=== PATIENT | female | born 1970 | race Caucasian/White ===

== ENCOUNTER → 2024-01-06 08:39 | Outpatient (REF) | payer BC, SELFPAY | LOC: WDC 08:39 | PROVIDERS: ATTENDING PHYSICIAN Obstetrics & Gynecology; FAMILY PHYSICIAN Family Medicine | DX: Z12.31 Encounter for screening mammogram for malignant neoplasm of breast (principal) | CPT/HCPCS: 77063; 77067 ==

== ENCOUNTER → 2024-11-05 14:10 | Outpatient (REF) | payer BC, SELFPAY | LOC: HWRAD 14:10 | PROVIDERS: ATTENDING PHYSICIAN Otolaryngology; FAMILY PHYSICIAN Family Medicine | DX: J32.0 Chronic maxillary sinusitis (principal) | CPT/HCPCS: 70486 ==

== ENCOUNTER → 2025-01-10 10:57 | Outpatient (REF) | payer BC, SELFPAY | LOC: WDC 10:57 | PROVIDERS: ATTENDING PHYSICIAN Obstetrics & Gynecology; FAMILY PHYSICIAN Family Medicine | DX: Z12.31 Encounter for screening mammogram for malignant neoplasm of breast (principal) | CPT/HCPCS: 77063; 77067 ==

== ENCOUNTER 2025-02-26 19:19 | Emergency (ER) | payer BC, SELFPAY ==
[2025-02-26 19:20] VITALS: BP 147/93
[2025-02-26 19:42] LABS: Urine Character Clear (Clear)
[2025-02-26 19:48] LABS: Hematocrit 40.3 % (37.0-47.0); Hemoglobin 13.4 g/dL (12.0-16.0); Mean Corp Hgb Conc. 33.3 g/dL (33.0-37.0); Mean Corpuscular Volume 86.7 fL (81.0-99.0); Platelet Count 248 10^3/uL (130-400); Red Cell Dist. Width 12.6 % (11.5-14.5)
[2025-02-26 19:51] LABS: HCG, Serum Qualitative Screen Negative
[2025-02-26 19:54] LABS: Urine Red Blood Cell 0-2 /HPF (0-2)
[2025-02-26 19:55] LABS: ALT (SGPT) 24 U/L (0-35); AST (SGOT) 25 U/L (14-36); Albumin 4.9 g/dl (3.5-5.0); Alkaline Phosphatase 59 U/L (38-126); Blood Urea Nitrogen 17 mg/dl (7-17); Calcium 10.0 mg/dl (8.4-10.2); Carbon Dioxide 23 mmol/L (22-30); Chloride 107 mmol/L (98-107); Glucose 89 mg/dl (70-99); Lipase 156 U/L (23-300); Potassium 3.8 mmol/L (3.5-5.1); Sodium 139 mmol/L (135-145); Total Protein 7.7 g/dl (6.3-8.2); eGFR > 60.00
[2025-02-26 20:13] LABS: Nucleated Red Blood Cells % 0 %
[2025-02-26 21:21] VITALS: BP 126/82; BMI 28.9
--- NOTE | 2025-02-26 22:34 | ED.GENMED ---
History of Present Illness
General
Chief Complaint: Abdominal Pain
Source: patient
Exam Limitations: none
Time Seen by Provider: 02/26/25 21:22
Nursing documentation reviewed up to this point in time: agreed with
History of Present Illness
History of Present Illness:
Patient is a 54-year-old female who presents to the ER complaining of left-sided abdominal pain. She reports she has had pain for the past several days. She has nauseous with this. She does feel some pressure in her suprapubic region. She denies
any burning with urination. She had diarrhea when this started several days ago. She is on Zepbound however has had more of an indigestion with that and not similar symptoms.
She denies any injury but does report she has been doing a lot of heavy front squats with weights/barbell.
She denies any back pain or numbness [place] weakness to lower extremities denies any bowel bladder incontinence. She denies any constipation
Past History
Past History
ED Past Medical History: Asthma
ED Past Surgical History: Other (Breast reduction surgery October 2014)
Social History
Tobacco: Non-smoker
Personal:
Living: with family
Employment: Employed
Phy Exam
General Physical Exam
General Presentation: no apparent distress
General age: appears stated age
General Skin: warm and dry
General Habitus: normal
General Mental: alert
General Hydration: appears well hydrated
Gastrointestinal Exam
Gastrointestinal Exam: soft and other (tender llq )
Neurological Exam
Neurological Exam: alert and oriented x3
Musculoskeletal Exam
Musculoskeletal Exam: full ROM
Skin Exam
Skin Exam: normal color and warm/dry
Psychiatric Exam
Psychiatric Exam: normal mood/affect
Course
Orders/Labs/Results
Orders:
Orders
02/26/25 19:25
Test Result ONCE
02/26/25 19:34
Complete Blood Count/With Diff Urgent
Comprehensive Metabolic Panel Urgent
HCG, Serum Qualitative Screen Urgent
Lipase Urgent
Urinalysis Reflex To Culture Urgent
Date Specimen was Collected: 02/26/25
Time Specimen was Collected: :25
Urine Microscopic Reflex Cult Urgent
Urine Culture Urgent
ALHAJI Source: U
Specimen Description:
Date Specimen was Collected: 02/26/25
Time Specimen was Collected: :
02/26/25 22:41
0.9% Sodium Chloride 1000 ml [Nss] 1,000 ml IV BOLUS
Ketorolac [Toradol] 15 mg IV NOW STA
Ondansetron Injectable [Zofran] 4 mg IV NOW STA
02/27/25 00:23
CT Abd/pelvis W Iv Cont Urgent
Comment:
Reason For Exam: left side abd pain
02/27/25 02:09
Acetaminophen [Tylenol] 1,000 mg PO NOW STA
Abnormal Lab Results
02/26/25
19:34
Neutrophils % 33.8 L %
(42.2-75.2)
Lymphocytes % 52.7 H %
(20.5-51.1)
Leukocyte Esterase Rfl 1+ A
(Negative)
Urine Albumin (Reflex) 1+ A
(Neg - Trace)
02/26/25 19:34
02/26/25 19:34
Vital Signs
Initial and Last Documented VS:
Initial Vital Signs
Temp Pulse Resp BP Pulse Ox
97.9 F 77 18 147/93 98
02/26/25 19:20 02/26/25 19:20 02/26/25 19:20 02/26/25 19:20 02/26/25 19:20
Last Documented Vital Signs
Temp Pulse Resp BP Pulse Ox
97.9 F 77 18 126/82 97
02/26/25 19:20 02/26/25 19:20 02/26/25 19:20 02/26/25 21:21 02/26/25 22:35
MDM/Problems Addressed
Differential Diagnosis Includes:
Not limited to diverticulitis UTI less likely colitis pancreatitis
MDM/Problems Addressed:
Patient with left side abdominal pain radiating to the vaginal area .
No UTI symptoms no recent injury however does admit to heavy weightlifting. Patient presents to the ER awake alert no acute distress however tender throughout the left lower abdomen patient is afebrile labs are unremarkable including normal
urinalysis. CAT scan unremarkable. I did speak with [facility] again and confirm a normal uterus and normal ovaries.
No acute cause of patient's symptoms this could be muscular however discussed close outpatient follow-up with both [employer] and family doctor discussed with patient alternate ibuprofen and Tylenol ice/ heat
*Pulse Oximetry
SaO2: 97
Oxygen Mode of Delivery: Room air
Patient hypoxic: no
*Critical Care Note
Total Time (30-74mins, 75-104mins- exclusive of procedures): Not Applicable
ED Attending Note
-
Portions of this chart may have been created with voice recognition software.� Occasional wrong word or��sound alike� substitutions may have occurred due to the inherent limitations of voice recognition software.
Discharge Plan
Departure
Patient Disposition: Home (Routine Discharge)
Date of Disposition: 02/27/25
Time of Disposition: 02:11
Patient with high blood pressure during this ER visit?: Yes
Condition: Fair
Covid-19: Not Applicable
Discharge Problem:
Abdominal pain
Instructions: Abdominal Pain, BLOOD PRESSURE
Prescriptions:
No Action
cholecalciferol (vitamin D3) 1,000 UNITS tablet
1,000 units PO DAILY
[place] Oil
1,000 mg PO DAILY
prednisone 20 MG tablet
40 mg PO DAILY Qty: 8 0RF
famotidine 20 MG tablet
20 mg PO DAILYPRN PRN (Reason: GERD)
Referrals:
Logan Tolentino MD [Family Provider, Family Practice]
Activity Restrictions/Additional Instructions:
As discussed there is no definitive cause for your symptoms.
Alternate between ibuprofen and Tylenol. You may try icing the affected area and alternate with heat. Closely follow-up with family doctor and your [employer] in the next several days return if any worsening of symptoms.
Interventions
Interventions:
*Risk Screen - Suicide Last Done: 02/26/25 19:20
*General Assessment Last Done: 02/26/25 19:20
*Neglect/Abuse Screening Last Done: 02/26/25 19:20
*ED- Fall Risk Assessment Last Done: 02/26/25 21:21
*ED COVID-19 Vaccine History Last Done: 02/26/25 21:21
WR-Wenxio-Gxuzpcpqcv Assessment Last Done: 02/26/25 21:21
Discharge Date and Time
Print Language: ZAMBIAN
[2025-02-26] MEDS: ZOFRAN 4 MG IV (22:55)
[2025-02-26] MEDS: NSS 1000 IV (22:56)
[2025-02-26] MEDS: TORADOL 15 MG IV (22:56)
[2025-02-27] MEDS: TYLENOL 1000 MG PO (02:16)
== END 2025-02-27 02:35 | disposition home or self-care (01) ==
LOC: EMR 19:19
PROVIDERS: Emergency Medicine; EMERGENCY PHYSICIAN Student in an Organized Health Care Education/Training Program; FAMILY PHYSICIAN Family Medicine
DX: R10.32 Left lower quadrant pain (principal); J45.909 Unspecified asthma, uncomplicated
CPT/HCPCS: 99284; 96374; 96375; 96361; 74177; 80053; 81003; 81015; 83690; 84703; 85025; 87086; Q9967